=== PATIENT | female | born 1950 | race Caucasian/White ===

== ENCOUNTER 2020-12-16 12:59 | Emergency (ER) | payer MEDICARE, SELFPAY ==
[2020-12-16 13:10] VITALS: BP 130/73; PULSE 78; RESP 16; TEMP 36.9; O2SAT 99
--- NOTE | 2020-12-16 13:27 | ED.EAR ---
HPI - Ear Problem General Chief complaint: Ear Stated complaint: ear pain Source: patient Mode of arrival: ambulatory Limitations: no limitations History of Present Illness HPI Narrative: Patient presents for evaluation of itching in the right ear. Symptom onset this morning. She denies any hearing loss, tinnitus, drainage from the ear. She applied some swimmer's ear drops into the right ear and states that she is not currently experiencing any itching but it was driving (her) nuts this morning . No cough, sore throat or other concerning symptoms. States she had an allergy shot sometime this week. She also takes montelukast. Related Data Home Medications Medication Instructions Recorded Confirmed buspirone 7.5 mg PO BID 12/16/20 12/16/20 famotidine 20 mg PO DAILY 12/16/20 12/16/20 irbesartan 150 mg PO DAILY 12/16/20 12/16/20 metformin 500 mg PO DAILY 12/16/20 12/16/20 montelukast 10 mg PO DAILY 12/16/20 12/16/20 Allergies Allergy/AdvReac Type Severity Reaction Status Date / Time Penicillins Allergy Unknown Verified 12/16/20 13:17 Review of Systems Review of Systems: Narrative: CONSTITUTIONAL: Denies fever, chills, or sweats. EYES: Denies visual changes, redness, or discharge. ENT: Reports itching in right ear canal. Denies rhinorrhea, congestion, sore throat, otalgia, tinnitus, hearing loss or drainage from ear. CARDIOVASCULAR: Denies chest pain, palpitations, or edema. RESPIRATORY: Denies cough or dyspnea. GASTROINTESTINAL: Denies abdominal pain, nausea, vomiting, or diarrhea. GENITOURINARY: Denies dysuria or hematuria. SKIN: Denies rash or itching. MUSCULOSKELETAL: Denies back pain, joint pain, or myalgia. NEUROLOGIC: Denies headache, numbness, dizziness, or weakness. PSYCHIATRIC: Denies anxiety or depression. [facility] Past Medical History Medical History (Updated 12/16/20 @ 13:56 by Naseem Vieyra, PAM, MADHAV) Diabetes type 2, controlled GERD (gastroesophageal reflux disease) Hypertension Surgical History Surgical History (Updated 12/16/20 @ 13:30 by Naseem Vieyra, PAM, MADHAV) No pertinent past surgical history Family History Family History Father Cerebrovascular accident Social History Social History (Updated 12/16/20 @ 13:28 by Naseem Vieyra, [facility]) Smoking status: Never smoker Alcohol intake: never Substance use: never Living arrangements: with family Gender identity (if verbalized by the patient): Female Sexual Orientation (if Verbalized by the Patient): Straight or Heterosexual Spiritual care concerns: No Exam Narrative: Exam Narrative: GENERAL: Well-appearing, well-nourished, and in no acute distress. HEAD: Normocephalic, atraumatic. EYES: PERRLA and EOMI. ENT: Nares clear, no rhinorrhea or epistaxis. Mucous membranes moist. Oropharynx without tonsillar hypertrophy exudate or other lesions. Bilateral TMs pearly vick nonbulging. There is a scant amount cerumen in the right ear canal extending from 1-5 o'clock position. There is a small amount of serous middle ear fluid in right ear NECK: Supple. No adenopathy or masses. No carotid bruits or JVD CHEST: Clear to auscultation. No respiratory distress. No wheezes rales or rhonchi HEART: Regular rate and rhythm. No murmur heard. Normal peripheral pulses. ABDOMEN: Soft, nontender, nondistended, normal active bowel sounds. EXTREMITIES: Normal range of motion. No edema. SKIN: Warm, dry, no rash. NEURO: No focal deficits. Alert and oriented x3. PSYCH: Normal mood and affect. Course Course Emergency Course: This is a 70-year-old female who presented with complaints of pruritus of the right ear canal with symptom onset today. The time she arrived here, symptoms resolved. She did request that we identify the underlying cause of her symptoms. There is a small amount of serous middle ear fluid on right which is likely secondary to eustachian tube dysfunction.
== END 2020-12-16 14:02 | disposition home or self-care (01) ==
PROVIDERS: Emergency Provider Nurse Practitioner; PCP Nurse Practitioner Adult Health
DX: H69.91 Unspecified Eustachian tube disorder, right ear (principal); H73.891 Other specified disorders of tympanic membrane, right ear; E11.9 Type 2 diabetes mellitus without complications; K21.9 Gastro-esophageal reflux disease without esophagitis; I10 Essential (primary) hypertension
CPT/HCPCS: 99202; G0463

== ENCOUNTER 2021-08-09 09:24 | Outpatient (RCR) | payer MEDICARE, SELFPAY ==
[2021-08-09] MEDS: ACETAMINOPHEN 325 MG TABLET 650 MG PO (13:41)
[2021-08-09] MEDS: FAMOTIDINE 20 MG TABLET PO (13:41)
[2021-08-09] MEDS: diphenhydrAMINE HCl CAP 25 MG CAPSULE PO (13:42)
[2021-08-09 13:59] VITALS: BP 106/64; PULSE 83; RESP 20; TEMP 37.6; O2SAT 98
[2021-08-09 15:09] VITALS: BP 132/60
== END 2021-08-09 16:00 | disposition home or self-care (01) ==
LOC: AMCINF 09:24
PROVIDERS: PCP Family Medicine; Visit Provider Internal Medicine Hematology & Oncology
DX: Z23 Encounter for immunization (principal); U07.1 COVID-19; I10 Essential (primary) hypertension
CPT/HCPCS: A9270; J7050; M0243; Q0244

== ENCOUNTER → 2023-04-30 10:02 | Outpatient (CLI) | payer MEDICARE, SELFPAY ==
--- NOTE | ~2023-04-30 | XR_ITS ---
EXAMINATION: XR chest 2V 04/30/2023 10:30 INDICATION: Productive cough for 6 months PROCEDURE: 2 view chest COMPARISON: 12/26/2004 FINDINGS: The lungs are clear. The cardiomediastinal silhouette is within normal limits. There are no pleural effusions. There is no pneumothorax suspected. The lungs are hyperinflated which is consistent with, but not diagnostic of chronic obstructive pulmo nary disease. IMPRESSION: 1: NO ACUTE CARDIOPULMONARY DISEASE. Reviewed, dictated and finalized at location []
--- NOTE | ~2023-04-30 | CT_ITS ---
EXAMINATION: CT sinus wo con DATE: 04/30/2023 10:23 INDICATION: Allergic rhinitis TECHNIQUE: Computed tomography (CT) of the paranasal sinuses was performed without intravenous contra st. The dose-length product was 312.74 mGy-cm. Automated exposure control and iterative reconstructio n technique were employed. COMPARISON: CT dated 04/17/2005 FINDINGS: There is mucosal thickening of the ethmoid and maxillary sinuses. There is mucous retention cyst of the left maxillary antrum. No air-fluid levels. No significant mucoperiosteal reaction. Righ tward nasal septal deviation. Ostiomeatal units are patent bilaterally. IMPRESSION: 1. Moderate sinus disease primarily involving the maxillary and ethmoid sinuses. Reviewed, dictated and finalized at location [] IMPRESSION: 1. Moderate sinus disease primarily involving the maxillary and ethmoid sinuses .
== END ==
PROVIDERS: Visit Provider Allergy & Immunology
DX: J31.0 Chronic rhinitis (principal)
CPT/HCPCS: 70486; 71046

== ENCOUNTER 2024-11-16 13:12 | Outpatient (CLI) | payer MEDICARE, SELFPAY ==
--- NOTE | ~2024-11-16 | CT_ITS ---
EXAMINATION: CT sinus wo con DATE: 11/16/2024 13:35 INDICATION: Chronic sinusitis TECHNIQUE: Computed tomography (CT) of the paranasal sinuses was performed without intravenous contra st. The dose-length product was 275.58 mGy-cm. Automated exposure control and iterative reconstructio n technique were employed. COMPARISON: CT dated 04/30/2023 FINDINGS: There is mucosal thickening of the frontal, ethmoid, maxillary and sphenoid sinuses. There is mucoperiosteal reaction in the maxillary and sphenoid sinuses. Mastoids are pneumatized. IMPRESSION: 1. Moderate pansinusitis disease. Reviewed, dictated and finalized at location B. NE OILER
== END 2024-11-16 13:13 | disposition home or self-care (01) ==
LOC: MICIMG 13:16
PROVIDERS: Visit Provider Allergy & Immunology
DX: J32.4 Chronic pansinusitis (principal); J32.9 Chronic sinusitis, unspecified
CPT/HCPCS: 70486

== ENCOUNTER 2024-12-08 13:57 | Outpatient (CLI) | payer MEDICARE, SELFPAY ==
--- NOTE | ~2024-12-08 | XR_ITS ---
CHEST RADIOGRAPH, PA AND LATERAL CLINICAL HISTORY: Cough . COMPARISON: 04/30/2023 TECHNIQUE: PA and lateral views of the chest. FINDINGS The cardiomediastinal silhouette is unremarkable. The lungs are clear. Visualized osseous structures and soft tissues are unremarkable. IMPRESSION: No focal infiltrate or effusion. Reviewed, dictated and finalized at location A. P POLISHER
== END 2024-12-08 13:58 | disposition home or self-care (01) ==
PROVIDERS: Visit Provider Allergy & Immunology
DX: R05.9 Cough, unspecified (principal)
CPT/HCPCS: 71046